=== PATIENT | male | born 1935 | race Caucasian/White ===

== ENCOUNTER 2023-02-20 19:45 | Emergency (ER) | payer OTHER ==
--- NOTE | 2023-02-20 21:20 | RAD REPORT ---
EXAM DESCRIPTION: CT - CTHCSPWOC - 02/20/2023 9:09 pm CLINICAL HISTORY: Trauma, head and neck injury. trauma COMPARISON: No comparisons TECHNIQUE: Axial 5 mm thick images of the head were obtained. Axial 2 mm thick images of the cervical spine were obtained with sagittal and coronal reconstruction images generated and reviewed. All CT scans are performed using dose optimization technique as appropriate and may include automated exposure control or mA/KV adjustment according to patient size. FINDINGS: CT HEAD WITHOUT CONTRAST: Extra-axial hemorrhage along the right frontal lobe measuring 7 mm in maximal thickness. This could b e either subdural or epidural hematoma. Part of the hemorrhage has a convex appearance. No areas of b rain edema or midline shift. Large bifrontal scalp hematomas. Cerebral atrophy. Proximal changes. The paranasal sinuses and mastoids are clear.The calvarium is intact. CT CERVICAL SPINE WITHOUT CONTRAST: No fracture or subluxation.No prevertebral soft tissues swelling is identified. Multilevel cervical s pondylosis with varying degrees of neural foraminal narrowing. Right IJ approach dialysis catheter. IMPRESSION: 1. Extra-axial hemorrhage along the right frontal lobe is probably acute subdural hemato ma but there is some convexity of the hemorrhage making an epidural hematoma difficult to entirely ex clude. No midline shift. No skull fracture. Discussed with Dr. Barrientos via phone at [id number] on 02/20/23 . 2. No fracture or traumatic malalignment of the cervical spine.
[2023-02-20] MEDS ORDERED: HYDROCODONE/APAP 5/325 MG TAB ONE (21:40)
[2023-02-20] MEDS ORDERED: ONDANSETRON 4 MG (ODT) TAB ONE (21:40)
[2023-02-20 21:56] LABS: Protime INR 1.17
[2023-02-20 21:58] LABS: Absolute Lymphocytes (CBC) 0.8 K/uL (0.7-4.9); Hematocrit 25.9 % (39.6-49.0); Lymphocytes % 9.2 % (15.3-44.8); MCV 92.6 fL (80-100); MPV 10.6 fL (7.6-11.3)
[2023-02-20 22:12] LABS: Potassium 2.6 mEq/L (3.5-5.1)
[2023-02-20 22:28] LABS: Albumin 3.4 g/dL (3.4-5.0); Bilirubin Direct 0.1 mg/dL (0-0.2); Bilirubin Indirect, Calculated 0.2 mg/dL (0.2-0.8); Bilirubin Total 0.3 mg/dL (0.2-1.0); Protein, Total 6.2 g/dL (6.4-8.2); Troponin High Sensitivity 52.8 pg/mL (<58.9)
[2023-02-20] MEDS ORDERED: NA CHLORIDE 0.9% 250 ML ONE (22:48)
[2023-02-20] MEDS ORDERED: KCL 20 MEQ/100 mL IVPB 100 ML IV ONE (22:48)
--- NOTE | 2023-02-21 00:02 | ER ---
Nurse's Notes [facility] Name: Joe Lopez Age: 87 yrs Sex: Male : 1935 Arrival Date: 02/20/2023 Time: 19:45 Bed 7 Private MD: Diagnosis: Acute subdural hematoma, traumatic brain injury, scalp hematoma, skin tear to the scalp, acute head injury, end-stage renal disease on hemodialysis, hypokalemia Presentation: 02/20 19:52 Chief complaint: EMS states: Toned out for a syncopal episode at dialysis, EMS states ph pt had 2.5 L taken off at dialysis today, reports low BP upon arrival, pt has abrasion and swelling to right temporal area, right eyebrow, abrasions to left cheek and right hand, bruising noted to right pectoral area, pt c/o pain to head 10/10. Coronavirus screen: Vaccine status: Patient reports receiving the 2nd dose of the covid vaccine. At this time, the client does not indicate any symptoms associated with coronavirus-19. Ebola Screen: No symptoms or risks identified at this time. Initial Sepsis Screen: Does the patient meet any 2 criteria? No. Patient's initial sepsis screen is negative. Does the patient have a suspected source of infection? No. Patient's initial sepsis screen is negative. Risk Assessment: Do you want to hurt yourself or someone else? Patient reports no desire to harm self or others. Onset of symptoms was February 20, 2023. Care prior to arrival: Medication(s) given: Normal saline infusion, 300 IV initiated. 18 GA, in the right antecubital area, Glucose check: 226. 19:52 Method Of Arrival: EMS: [facility] ph 19:52 Acuity: DEONDRE 3 ph Triage Assessment: 19:59 General: Appears uncomfortable, Behavior is calm, cooperative. Pain: Complains of pain ph in face Pain does not radiate. Pain currently is 10 out of 10 on a pain scale. Is continuous. Neuro: Reports a syncopal episode States had dialysis today where they took 2.5 L off, states stood up to use the bathroom and passed out. Cardiovascular: Patient's skin is warm and dry. Respiratory: Respiratory effort is even, unlabored, Respiratory pattern is regular, symmetrical. Derm: Wound noted Other: Abrasion to L cheek, right temporal area, R hand Bruising that is dark purple, on anterior aspect of right upper chest. Musculoskeletal: Circulation, motion, and sensation intact. Historical: - Allergies: 19:59 No Known Allergies; ph - Home Meds: 19:59 glipizide 2.5 mg Oral Tablet, Extended Release 24 hr daily [Active]; Lasix 40 mg Oral ph tablet daily [Active]; levothyroxine 25 mcg capsule daily [Active]; sevelamer HCl oral 1600 3 times per day [Active]; - PMHx: 19:59 ESRD; Diabetes mellitus; ph - Immunization history:: Client reports receiving the 2nd dose of the Covid vaccine. - Social history:: Smoking status: Patient denies any tobacco usage or history of. - Family history:: not pertinent. Screenin:13 [facility] ED Fall Risk Assessment (Adult) History of falling in the last 3 months, ph including since admission Yes- single mechanical fall (1 pt) Confusion or Disorientation No (0 pts) Intoxicated or Sedated No (0 pts) Impaired Gait No (0 pts) Mobility Assist Device Used No (0 pt) Altered Elimination No (0 pt) Score/Fall Risk Level 0 - 2 = Low Risk Oriented to surroundings, Maintained a safe environment, Educated pt \T\ family on fall prevention, incl call for assistance when getting out of bed. Abuse screen: Denies threats or abuse. Denies injuries from another. Nutritional screening: No deficits noted. Tuberculosis screening: No symptoms or risk factors identified. Assessment: 19:59 General: See triage assessment. ph 22:14 Cardiovascular: Rhythm is sinus bradycardia. ph Vital Signs: 19:52 BP 154 / 67; Pulse 85; Resp 17; Temp 97.5(O); Pulse Ox 100% on R/A; Weight 59.87 kg ph (R); Height 5 ft. 8 in. (R); Pain 10/10; 20:45 BP 152 / 76; Pulse 50; Resp 15; Pulse Ox 100% on R/A; ph 22:00 BP 175 / 60; Pulse 53; Resp 16; Pulse Ox 100% on R/A; ph 23:15 BP 146 / 62; Pulse 56; Resp 17; Pulse Ox 98% on R/A; ll3 05/30 00:15 BP 161 / 64; Pulse 55; Resp 16; Pulse Ox 99% on R/A; ll3 01:30 BP 151 / 65; Pulse 51; Resp 16; Pulse Ox 96% on R/A; ll3 02/20 19:52 Body Mass Index 20.07 (59.87 kg, 172.72 cm) ph 02/20 19:52 Pain Scale: Adult ph ED Course: 02/20 19:45 Patient arrived in ED. rv1 19:59 Triage completed. ph 19:59 Arm band placed on Patient placed in an exam room, on a stretcher, on registered nurse cardiac, ph on pulse oximetry. EKG completed in triage. Results shown to MD. 20:02 Guido Davis MD is Attending Physician. bs3 20:39 Attending Physician role handed off by Guido Davis MD sp4 20:39 Erik Barrientos MD is Attending Physician. sp4 21:10 Head C Spine Mpr Wo Con In Process Unspecified. EDMS 22:14 Patient has correct armband on for positive identification. Placed in gown. Bed in low ph position. Call light in reach. Side rails up X 1. Adult w/ patient. 22:14 No provider procedures requiring assistance completed. ph 22:58 XRAY Chest (1 view) In Process Unspecified. EDMS 23:10 Initiated transfer with Lizeth Gagnon at [facility]. rv1 02/21 00:09 Pt accepted to [facility] by Dr. May to Rm [id number]. rv1 01:58 Patient transferred, IV remains in place. ll3 Administered Medications: 02/20 21:43 Drug: HYDROcodone-acetaminophen PO 5 mg-325 mg 2 tabs Route: PO; ph 02/21 00:15 Follow up: Response: No adverse reaction; Marked relief of symptoms; Pain is decreased ll3 02/20 21:43 Drug: Ondansetron PO 4 mg Route: PO; ph 02/21 00:15 Follow up: Response: No adverse reaction ll3 02/20 23:01 Drug: Potassium Chloride IV 20 mEq Route: IV; Rate: calculated rate; Site: right ph antecubital; Medication: 02/21 01:58 VIS not applicable for this client. ll3 Outcome: 00:01 ER care complete, transfer ordered by . sp4 01:58 Transferred by ground EMS Transfer form completed. X-rays sent w/ patient. Note: [facility] ll3 [place] 01:58 Condition: stable 01:58 Instructed on the need for transfer, Demonstrated understanding of instructions. 01:58 Patient left the ED. ll3 Signatures: Dispatcher [employer] Yu Orourke RN RN Miki Cortes RN RN ll3 Guido Davis MD MD bs3 Nancy Levin rv1 Erik Barrientos MD MD sp4 Corrections: (The following items were deleted from the chart) 02/20 20:08 20:07 General: See triage assessment. [facility]
--- NOTE | 2023-02-21 00:03 | EDPHYS ---
Physician Documentation [facility] Name: Joe Lopez Age: 87 yrs Sex: Male : 1935 Arrival Date: 02/20/2023 Time: 19:45 Bed 7 Private MD: ED Physician Erik Barrientos HPI: 02/20 21:42 This 87 yrs old Male presents to ER via EMS with complaints of Syncope. sp4 21:42 87-year-old male with past medical history of end-stage renal disease. Patient is on sp4 hemodialysis every Monday, Monday, Monday. Patient presents with acute fall at the dialysis center and he struck his head on the commode. Patient presents with moderate hematoma right forehead and another moderate hematoma to the left forehead. Denied loss of consciousness, denied vomiting, reported mild headache. . Historical: - Allergies: 19:59 No Known Allergies; ph - Home Meds: 19:59 glipizide 2.5 mg Oral Tablet, Extended Release 24 hr daily [Active]; Lasix 40 mg Oral ph tablet daily [Active]; levothyroxine 25 mcg capsule daily [Active]; sevelamer HCl oral 1600 3 times per day [Active]; - PMHx: 19:59 ESRD; Diabetes mellitus; ph - Immunization history:: Client reports receiving the 2nd dose of the Covid vaccine. - Social history:: Smoking status: Patient denies any tobacco usage or history of. - Family history:: not pertinent. ROS: 21:42 Constitutional: Negative for fever, chills, and weight loss, positive for head injury, sp4 positive for scalp hematomas Eyes: Negative for injury, pain, redness, and discharge, ENT: Negative for injury, pain, and discharge, Neck: Negative for injury, pain, and swelling, Cardiovascular: Negative for chest pain, palpitations, and edema, Respiratory: Negative for shortness of breath, cough, wheezing, and pleuritic chest pain, Abdomen/GI: Negative for abdominal pain, nausea, vomiting, diarrhea, and constipation, Back: Negative for injury and pain, : Negative for injury, bleeding, discharge, and swelling, MS/Extremity: Negative for injury and deformity, Skin: Negative for injury, rash, and discoloration, Neuro: Negative for headache, weakness, numbness, tingling, and seizure, Psych: Negative for depression, anxiety, Allergy/Immunology: Negative for hives, rash, and allergies Endocrine: Negative for neck swelling, polydipsia, polyuria, polyphagia, and weight changes Hematologic/Lymphatic: Negative for swollen nodes, abnormal bleeding, and unusual bruising Exam: 21:42 Constitutional: This is a well developed, well nourished patient who is awake, alert, sp4 and in no acute distress. Frail elderly male, no acute distress, moderate bilateral scalp hematomas, multiple areas of subcutaneous skin hemorrhage bilateral upper extremity. Head/Face: Normocephalic, there scalp hematomas, moderate left forehead scalp hematoma, and moderate right forehead and scalp hematoma with skin abrasions and some areas of denuded skin to the scalp.. No lacerations. Eyes: Pupils equal round and reactive to light, extra-ocular motions intact. Lids and lashes normal. Conjunctiva and sclera are not injected. Cornea within normal limits. Periorbital areas with no swelling, redness, or edema. ENT: Nares patent. No nasal discharge, no septal abnormalities noted. Tympanic membranes are normal and external auditory canals are clear. Oropharynx with no redness, swelling, or masses, exudates, or evidence of obstruction, uvula midline. Mucous membranes moist. Neck: Trachea midline, no thyromegaly or masses palpated, and no cervical lymphadenopathy. Supple, full range of motion without nuchal rigidity, or vertebral point tenderness. No Meningismus. Chest/axilla: Normal chest wall appearance and motion. Nontender with no deformity. No lesions are appreciated. Right chest wall tunneled hemodialysis port Cardiovascular: Regular rate and rhythm with a normal S1 and S2. No gallops, murmurs, or rubs. Normal PMI, no JVD. No pulse deficits. Respiratory: Lungs have equal breath sounds bilaterally, clear to auscultation and percussion. No rales, rhonchi or wheezes noted. No increased work of breathing, no retractions or nasal flaring. Abdomen/GI: Soft, non-tender, with normal bowel sounds. No distension or tympany. No guarding or rebound. No evidence of tenderness throughout. Back: No spinal tenderness. No costovertebral tenderness. Male : Normal genitalia with no discharge or lesions. Skin: Warm, dry with normal turgor. Normal color with no rashes, no lesions, and no evidence of cellulitis. Multiple areas of subcutaneous hemorrhage to upper extremities. MS/ Extremity: Pulses equal, no cyanosis. Neurovascular intact. Full, normal range of motion. Neuro: Awake and alert, GCS 15, oriented to person, place, time, and situation. Cranial nerves II-XII grossly intact. Motor strength 5/5 in all extremities. Sensory grossly intact. Psych: Awake, alert, with orientation to person, place and time. Behavior, mood, and affect are within normal limits Vital Signs: 19:52 BP 154 / 67; Pulse 85; Resp 17; Temp 97.5(O); Pulse Ox 100% on R/A; Weight 59.87 kg ph (R); Height 5 ft. 8 in. (R); Pain 10/10; 20:45 BP 152 / 76; Pulse 50; Resp 15; Pulse Ox 100% on R/A; ph 22:00 BP 175 / 60; Pulse 53; Resp 16; Pulse Ox 100% on R/A; ph 23:15 BP 146 / 62; Pulse 56; Resp 17; Pulse Ox 98% on R/A; ll3 05 00:15 BP 161 / 64; Pulse 55; Resp 16; Pulse Ox 99% on R/A; ll3 01:30 BP 151 / 65; Pulse 51; Resp 16; Pulse Ox 96% on R/A; ll3 02/20 19:52 Body Mass Index 20.07 (59.87 kg, 172.72 cm) ph 02/20 19:52 Pain Scale: Adult ph MDM: 02/20 20:02 Patient medically screened. bs3 23:44 Differential Diagnosis: cerebrovascular accident, drug effect, transient ischemic sp4 attack, vasovagal episode, Closed head injury, intracranial hemorrhage. Data reviewed: vital signs, nurses notes, old medical records, lab test result(s), radiologic studies, CT scan, plain films. ED course: Patient has small epidural hematoma secondary to traumatic head injury right frontal lobe. Patient was discussed with Dr. Domingo. With [facility] neurosurgery and accepted for transfer. Currently awaiting for transfer. 02/20 21:25 Order name: Basic Metabolic Panel; Complete Time: 22:33 sp4 02/20 21:25 Order name: CBC with Diff; Complete Time: 22:33 sp4 02/20 21:25 Order name: Type And Screen; Complete Time: 23:43 [facility] 02/20 21:25 Order name: PT-INR; Complete Time: 22:33 [facility] 02/20 21:50 Order name: LFT's; Complete Time: 22:33 [facility] 02/20 21:50 Order name: Troponin High Sensitivity; Complete Time: 22:33 [facility] 02/20 20:33 Order name: Head C Spine Mpr Wo Con; Complete Time: 21:24 [facility] 02/20 21:25 Order name: XRAY Chest (1 view) [facility] 02/20 21:50 Order name: EKG; Complete Time: 21:50 [facility] 02/20 21:25 Order name: Labs collected and sent; Complete Time: 21:44 [facility] 02/20 21:26 Order name: Wound Care; Complete Time: 22:01 [facility] Administered Medications: 21:43 Drug: HYDROcodone-acetaminophen PO 5 mg-325 mg 2 tabs Route: PO; ph 02/21 00:15 Follow up: Response: No adverse reaction; Marked relief of symptoms; Pain is decreased [facility] 02/20 21:43 Drug: Ondansetron PO 4 mg Route: PO; ph 02/21 00:15 Follow up: Response: No adverse reaction [facility] 02/20 23:01 Drug: Potassium Chloride IV 20 mEq Route: IV; Rate: calculated rate; Site: right ph antecubital; Disposition Summary: 02/21/23 00:01 Transfer Ordered Transfer Location: [facility] sp4 Reason: Higher level of care sp4 Condition: Stable sp4 Problem: new sp4 Symptoms: have improved sp4 Accepting Physician: Chayo Kraus MD, Neurosurgery(02/21/23 01:58) ll3 Diagnosis - Acute subdural hematoma, traumatic brain injury, scalp hematoma, skin tear to the sp4 scalp, acute head injury, end-stage renal disease on hemodialysis, hypokalemia Discharge Instructions: - Discharge Summary Sheet rv1 Forms: - SBAR form rv1 - Medication Reconciliation Form sp4 Signatures: Dispatcher [employer] Yu Orourke RN RN Miki Bucio RN RN ll3 Guido Davis MD MD bs3 Erik Barrientos MD MD sp4 Corrections: (The following items were deleted from the chart) 20:33 20:03 Head Brain Wo Cont+CT.RAD.BRZ ordered. EDMS EDMS 20:33 20:03 C Spine Wo Con+CT.RAD.BRZ ordered. EDMS EDMS 02/21 01:58 00:01 Chayo Kraus MD, Neurosurgery sp4 ll3
[2023-02-21 02:13] VITALS: TEMP 97.5
[2023-02-21 02:18] VITALS: BP 151/65; O2SAT 96
--- NOTE | 2023-02-21 15:17 | RAD REPORT ---
EXAM DESCRIPTION: RAD - Chest Single View - 02/20/2023 10:56 pm CLINICAL HISTORY: Fall COMPARISON: None. FINDINGS: Single frontal radiograph view of the chest. Cardiomediastinal silhouette: Right IJ dual-lumen central venous catheter tip in the SVC. Leads overl ie the chest. Atherosclerotic calcification of thoracic aorta. Heart is not enlarged. Lungs: Hyperexpansion. No focal consolidation. No pneumothorax. Bones: Endplate spondylosis. Osteoarthritic change of the shoulders. Upper abdomen: No abnormality identified. IMPRESSION: 1. No acute pneumonic process. 2. Obstructive lung disease. Electronically signed by: Danish Alvares 02/21/2023 12:42 AM CDT Due to temporary technical issues with the PACS/Fluency reporting system, reports are being signed by the in house radiologists without review as a courtesy to insure prompt reporting. The interpreting radiologist is fully responsible for the content of the report.
--- NOTE | 2023-02-22 07:10 | EKG ---
Test Date: 2023-02-20 Test Time: 20:01:01 Psych Arnp: MANNY MEASUREMENT RESULTS: Intervals: Rate: 51 MS: 110 QRSD: 96 QT: 510 QTc: 470 [place]: P: -7 MS: 110 QRS: -47 T: 74 INTERPRETIVE STATEMENTS: Sinus bradycardia with short MS with premature supraventricular complexes Left anterior fascicular block Abnormal ECG No previous ECG available for comparison Electronically Signed On 02-22-23 07:06:58 CDT by Kendall Espinoza
== END 2023-02-21 01:58 | disposition short-term general hospital (02) ==
LOC: ER 19:45
DX: S06.5X0A Traumatic subdural hemorrhage without loss of consciousness, initial encounter (principal); S01.01XA Laceration without foreign body of scalp, initial encounter; E87.6 Hypokalemia; E11.22 Type 2 diabetes mellitus with diabetic chronic kidney disease; N18.6 End stage renal disease; Z99.2 Dependence on renal dialysis
CPT/HCPCS: 93005; 85025; 80048; 36415; 86900; 86850; 85610; 86901; 80076; 84484; 70450; 72125; 71045; 96374; 99285; J3480; Q0162; J7050

== ENCOUNTER 2023-02-28 15:01 | Emergency (ER) | payer OTHER ==
--- NOTE | 2023-02-28 16:07 | RAD REPORT ---
EXAM DESCRIPTION: RAD - Chest Single View - 02/28/2023 4:02 pm CLINICAL HISTORY: syncope Chest pain. COMPARISON: Chest Single View dated 02/20/2023 FINDINGS: Portable technique limits examination quality. The lungs are grossly clear. The heart is normal in size. No displaced fractures.Right-sided venous c atheter its tip in the SVC. IMPRESSION: No acute intrathoracic process suspected.
[2023-02-28 16:11] LABS: Absolute Lymphocytes (CBC) 0.8 K/uL (0.7-4.9); Hematocrit 26.9 % (39.6-49.0); Lymphocytes % 8.1 % (15.3-44.8); MCV 93.2 fL (80-100); Protime INR 1.08; RBC Red Blood Cell Count 2.89 M/uL (4.33-5.43)
[2023-02-28 16:33] LABS: Albumin 3.1 g/dL (3.4-5.0); Bilirubin Direct 0.1 mg/dL (0-0.2); Bilirubin Indirect, Calculated 0.3 mg/dL (0.2-0.8); Bilirubin Total 0.4 mg/dL (0.2-1.0); Protein, Total 6.1 g/dL (6.4-8.2)
[2023-02-28 16:36] LABS: SARS-CoV-2 Antigen Rapid Res Negative (Negative)
[2023-02-28 16:38] LABS: Potassium 2.4 mEq/L (3.5-5.1)
[2023-02-28] MEDS ORDERED: NA CHLORIDE 0.9% 250 ML ONE (17:57)
[2023-02-28] MEDS ORDERED: KCL 20 MEQ/100 mL IVPB 100 ML IV ONE (17:58)
--- NOTE | 2023-02-28 18:23 | RAD REPORT ---
EXAM DESCRIPTION: CT - CTHCSPWOC - 02/28/2023 6:13 pm CLINICAL HISTORY: Trauma, head and neck injury. SYNCOPE COMPARISON: Head C Spine Mpr Wo Con dated 02/20/2023 TECHNIQUE: Axial 5 mm thick images of the head were obtained. Axial 2 mm thick images of the cervical spine were obtained with sagittal and coronal reconstruction images generated and reviewed. All CT scans are performed using dose optimization technique as appropriate and may include automated exposure control or mA/KV adjustment according to patient size. FINDINGS: CT HEAD WITHOUT CONTRAST: Bilateral intermediate density extra-axial fluid collections are present, noted to be new since 02/20 CT head. On the right, maximum thickness measures 10 mm, and on the left measures 9 mm. In cary tion there is mild acute subdural blood suspected along the right temporal convexity measuring 5 mm i n maximum thickness.No significant midline shift evident. The paranasal sinuses and mastoids are clear.The calvarium is intact. CT CERVICAL SPINE WITHOUT CONTRAST: No fracture or subluxation.Mild diffuse cervical degenerative changes are present.No prevertebral sof t tissues swelling is identified. IMPRESSION: Bilateral extra-axial intermediate density fluid collections have developed since 2022, measuring bilaterally between 8 mm 10 mm in thickness. These may represent subdural hygromas.In addition, there is a small amount acute subdural blood seen along the right temporal fossa maximally measuring 5 mm in thickness. This is a similar finding to the comparative study. No midline shift is evident. No acute cervical spine abnormality.
--- NOTE | 2023-02-28 19:00 | ER ---
Nurse's Notes [facility] Name: Joe Lopez Age: 87 yrs Sex: Male : 1935 Arrival Date: 02/28/2023 Time: 15:01 Bed 16 Private MD: Diagnosis: Hypokalemia;Traumatic subdural hemorrhage with loss of consciousness of unspecified duration;Unspecified atrial fibrillation Presentation: 02/28 15:22 Chief complaint: Patient states: Pt reports he was waiting for his ride after dialysis kb3 and as he stood up, her fell forward. Denies injury, CP, SOB. EMS reports hypotension on scene. SBP 120's upon arrival to ER. Coronavirus screen: Vaccine status: Patient reports receiving the 2nd dose of the covid vaccine. Ebola Screen: Patient negative for fever greater than or equal to 101.5 degrees Fahrenheit, and additional compatible Ebola Virus Disease symptoms Patient denies exposure to infectious person. Patient denies travel to an Ebola-affected area in the 21 days before illness onset. Initial Sepsis Screen: Does the patient meet any 2 criteria? No. Patient's initial sepsis screen is negative. Does the patient have a suspected source of infection? No. Patient's initial sepsis screen is negative. Risk Assessment: Do you want to hurt yourself or someone else? Patient reports no desire to harm self or others. Onset of symptoms was February 28, 2023 at 14:30. 15:22 Method Of Arrival: EMS: [facility] kb3 15:22 Acuity: DEONDRE 3 kb3 Triage Assessment: 15:28 General: Appears in no apparent distress. comfortable, Behavior is calm, cooperative. kb3 Pain: Denies pain. Historical: - Allergies: 15:28 No Known Allergies; kb3 - Home Meds: 15:28 glipizide 2.5 mg Oral Tablet, Extended Release 24 hr daily [Active]; Lasix 40 mg Oral kb3 solution daily [Active]; levothyroxine 25 mcg capsule daily [Active]; sevelamer HCl oral 1600 3 times per day [Active]; - PMHx: 15:28 diabetes mellitus; ESRD; kb3 - PSHx: 15:28 Abdominal sx; kb3 - Immunization history:: Adult Immunizations up to date, Client reports receiving the 2nd dose of the Covid vaccine, Last tetanus immunization: up to date. - Social history:: Smoking status: Patient denies any tobacco usage or history of. Screenin:50 [facility] ED Fall Risk Assessment (Adult) History of falling in the last 3 months, kb3 including since admission Yes- fall prone (multiple falls) (3 pts) Confusion or Disorientation No (0 pts) Intoxicated or Sedated No (0 pts) Impaired Gait Yes (1 pt) Mobility Assist Device Used Yes (1 pt) Altered Elimination No (0 pt) Score/Fall Risk Level 3 or more points = High Risk Oriented to surroundings, Maintained a safe environment, Educated pt \T\ family on fall prevention, incl call for assistance when getting out of bed, Assessed \T\ reinforced patient's understanding of fall precautions, Provided non-skid footwear, Hourly rounding (assess needs \T\ fall precautionary measures) done, Used ambulatory aids as needed (educated on \T\ assisted with), Used gait belt as appropriate Implemented a Fall Risk Plan of Care, Apply high fall risk patient identification: yellow non skid footwear/ fall signage, Placed fall mat w/ non beveled edge next to bed, Activated bed/chair alarm, Remained w/in arm's length of patient and in sight while toileting, Offered frequent toileting (1:1 observation), Remained with patient while ambulating, Utilized family, sitter, or virtual tool storage attendant as indicated. 21:49 Abuse screen: Denies threats or abuse. Denies injuries from another. Nutritional aa9 screening: No deficits noted. Tuberculosis screening: No symptoms or risk factors identified. Assessment: 15:50 General: Appears in no apparent distress. comfortable, Behavior is calm, cooperative, kb3 Multiple yellow/brown/purple bruises across face and chest from a fall last week Pt reports fall from standing after completing dialysis. Pt denies pain, reports no complaints at this time. 15:50 Pain: Denies pain. Cardiovascular: Denies chest pain, lightheadedness, nausea, kb3 palpitations, shortness of breath, Rhythm is w/SVR. 16:18 Reassessment: No changes from previously documented assessment. Patient is alert, bp oriented x 3, equal unlabored respirations, skin warm/dry/pink. 18:38 Reassessment: PT RETURNED FROM CT. bp 21:03 Reassessment: Patient appears in no apparent distress at this time. REPORT PROVIDED TO winnie sánchez rn. 21:46 Reassessment: Patient appears in no apparent distress at this time. Patient is alert, aa9 oriented x 3, equal unlabored respirations, skin warm/dry/pink. EMS at bedside Patient denies pain at this time. Vital Signs: 15:22 BP 120 / 64; Pulse 50; Resp 17; Temp 97.6; Pulse Ox 95% ; Weight 57.61 kg; Height 5 ft. kb3 8 in. ; Pain 0/10; 16:17 BP 120 / 55; Pulse 70; Resp 22; Pulse Ox 99% ; bp 17:20 BP 123 / 56; Pulse 53; Resp 12; Pulse Ox 100% ; bp 18:37 BP 127 / 63; Pulse 56; Resp 16; Pulse Ox 99% ; bp 19:00 BP 126 / 56; Pulse 59; Resp 19; Pulse Ox 100% on R/A; aa9 20:00 BP 111 / 54; Pulse 56; Resp 17 S; Pulse Ox 100% ; aa9 21:00 BP 108 / 53; Pulse 55; Resp 18; Pulse Ox 99% on R/A; aa9 21:48 BP 107 / 52; Pulse 54; Resp 17 S; Temp 98.2; Pulse Ox 99% on R/A; aa9 15:22 Body Mass Index 19.31 (57.61 kg, 172.72 cm) kb3 15:22 Pain Scale: Adult kb3 ED Course: 15:02 Patient arrived in ED. jl7 15:04 Angel Sanchez MD is Attending Physician. chris 15:09 [facility] Pickett PA is [facility]. cp 15:28 Triage completed. kb3 15:28 Arm band placed on right wrist. kb3 15:45 No provider procedures requiring assistance completed. Inserted saline lock: 20 gauge kb3 in left forearm, using aseptic technique. 15:50 Patient has correct armband on for positive identification. Placed in gown. Bed in low kb3 position. Call light in reach. Side rails up X2. Warm blanket given. PO fluids given. snacks provided. 16:04 XRAY Chest (1 view) In Process Unspecified. EDMS 16:08 Blood Culture Adult (2) Sent. kb3 16:08 Lactate w/ 2H reflex if indic. Sent. kb3 16:08 Basic Metabolic Panel Sent. kb3 16:08 CBC with Diff Sent. kb3 16:08 LFT's Sent. kb3 16:08 Magnesium Sent. kb3 16:08 PT-INR Sent. kb3 16:08 Troponin HS Sent. kb3 16:17 Alonso Alexander, RN is Primary Nurse. bp 18:15 CT Head C Spine In Process Unspecified. EDMS 19:32 Initial transfer to [facility] transfer center spoke with CITLALI Lee. ah1 19:41 Assisted to bedside commode. aa9 19:41 Linen changed. aa9 19:47 CITLALI Lee called back to speak with Angel for report. ah1 19:53 Inserted saline lock: 22 gauge in left forearm, using aseptic technique. aa9 19:[address] Shagufta Pickens. ah1 20:12 Hospital bed approval by CITLALI Lee. ah1 20:30 Contacted [facility]. ah1 21:17 Diet: Patient given snack. Tolerated well. aa9 21:49 Patient transferred, IV remains in place. aa9 Administered Medications: 18:37 Drug: Potassium Chloride IV 20 mEq Route: IV; Rate: calculated rate; Site: left bp antecubital; 20:54 Follow up: Response: No adverse reaction; IV Status: Completed infusion aa9 19:53 Drug: Keppra IV 1000 mg Route: IV; Rate: calculated rate; Site: left forearm; aa9 20:54 Follow up: Response: No adverse reaction; IV Status: Completed infusion; IV Intake: aa9 100ml Medication: 15:50 VIS not applicable for this client. kb3 Intake: 20:54 IV: 100ml; Total: 100ml. aa9 Outcome: 18:59 ER care complete, transfer ordered by . cp 21:49 Transferred by ground EMS to [facility], Transfer form aa9 completed. 21:49 Condition: stable 21:49 Instructed on the need for transfer. 21:52 Patient left the ED. aa9 Signatures: Dispatcher [employer] EDAngel Yoon MD MD cha Page, Corey, Arnoldo Pulido cp, RN RN jl7 Alonso Alexander, RN RN Alexandra Arroyo RN RN aa9 Yudith Crandall RN RN 3 Neil Holden [facility]
--- NOTE | 2023-02-28 19:00 | EDPHYS ---
Physician Documentation [facility] Name: Joe Lopez Age: 87 yrs Sex: Male : 1935 Arrival Date: 02/28/2023 Time: 15:01 Bed 16 Private MD: ED Physician Angel Sanchez HPI: 02/28 15:20 This 87 yrs old Male presents to ER via EMS with complaints of Fall Injury. cp 15:20 Details of fall: The patient fell from an upright position, while standing. cp 15:20 Onset: The symptoms/episode began/occurred just prior to arrival. cp 15:20 Associated injuries: The patient sustained injury to the head, contusion. cp 15:20 Patient reports he had just finished dialysis when he stood up to go outside to wait cp for ride and next thing he remembers is waking up on ground. Patient seen recently in this ED on 02-21-2023 after sustaining subdural bleed from fall from standing. Patient was transferred to [facility] for neurosurgery evaluation. Historical: - Allergies: 15:28 No Known Allergies; kb3 - Home Meds: 15:28 glipizide 2.5 mg Oral Tablet, Extended Release 24 hr daily [Active]; Lasix 40 mg Oral kb3 solution daily [Active]; levothyroxine 25 mcg capsule daily [Active]; sevelamer HCl oral 1600 3 times per day [Active]; - PMHx: 15:28 diabetes mellitus; ESRD; kb3 - PSHx: 15:28 Abdominal sx; kb3 - Immunization history:: Adult Immunizations up to date, Client reports receiving the 2nd dose of the Covid vaccine, Last tetanus immunization: up to date. - Social history:: Smoking status: Patient denies any tobacco usage or history of. ROS: 15:25 Constitutional: Negative for body aches, chills, fever, poor PO intake. cp 15:25 Eyes: Negative for injury, pain, redness, and discharge. cp 15:25 Neck: Negative for stiffness. 15:25 Cardiovascular: Negative for chest pain, palpitations. 15:25 Respiratory: Negative for cough, shortness of breath, wheezing. 15:25 Abdomen/GI: Negative for abdominal pain, vomiting, diarrhea, constipation. 15:25 Neuro: Positive for syncope, Negative for altered mental status, seizure activity, weakness. 15:25 All other systems are negative. Exam: 15:30 Constitutional: The patient appears in no acute distress, alert, awake, cp non-diaphoretic, non-toxic, well developed, well nourished, frail. 15:30 Head/face: Noted is hematoma, that is moderate, of the right side forhead, noted old cp appearing ecchymosis. 15:30 Eyes: Periorbital structures: appear normal, Pupils: equal, round, and reactive to light and accomodation, Extraocular movements: intact throughout, Conjunctiva: normal, no exudate, no injection, Sclera: no appreciated abnormality, Lids and lashes: appear normal, bilaterally. 15:30 ENT: External ear(s): are unremarkable, Ear canal(s): are normal, clear, TM's: dullness, bilaterally, Nose: is normal, Mouth: Lips: moist, Oral mucosa: pink and intact, moist, Posterior pharynx: is normal, airway is patent, no erythema, no exudate. 15:30 Neck: C-spine: vertebral tenderness, is not appreciated, crepitus, is not appreciated. 15:30 Chest/axilla: Inspection: normal, Palpation: is normal, no crepitus, no tenderness. 15:30 Cardiovascular: Rate: bradycardic, Rhythm: irregular, Edema: is not appreciated, JVD: is not appreciated. 15:30 Respiratory: the patient does not display signs of respiratory distress, Respirations: normal, no use of accessory muscles, no retractions, labored breathing, is not present, Breath sounds: are clear throughout, no decreased breath sounds, no stridor, no wheezing. 15:30 Abdomen/GI: Inspection: abdomen appears normal, Palpation: abdomen is soft and non-tender, in all quadrants. 15:30 Back: vertebral tenderness, is not appreciated. 15:30 Musculoskeletal/extremity: Exam is negative for bony tenderness, decreased range of motion, injury, Extremities: all appear grossly normal, with no appreciated pain with palpation. 15:30 Neuro: Orientation: to person, place \T\ time. Mentation: is normal, Motor: moves all fours, general weakness with no focal deficits, Sensation: is normal. 16:00 ECG was reviewed by the Attending Physician. cp Vital Signs: 15:22 BP 120 / 64; Pulse 50; Resp 17; Temp 97.6; Pulse Ox 95% ; Weight 57.61 kg; Height 5 ft. kb3 8 in. ; Pain 0/10; 16:17 BP 120 / 55; Pulse 70; Resp 22; Pulse Ox 99% ; bp 17:20 BP 123 / 56; Pulse 53; Resp 12; Pulse Ox 100% ; bp 18:37 BP 127 / 63; Pulse 56; Resp 16; Pulse Ox 99% ; bp 19:00 BP 126 / 56; Pulse 59; Resp 19; Pulse Ox 100% on R/A; aa9 20:00 BP 111 / 54; Pulse 56; Resp 17 S; Pulse Ox 100% ; aa9 21:00 BP 108 / 53; Pulse 55; Resp 18; Pulse Ox 99% on R/A; aa9 21:48 BP 107 / 52; Pulse 54; Resp 17 S; Temp 98.2; Pulse Ox 99% on R/A; aa9 15:22 Body Mass Index 19.31 (57.61 kg, 172.72 cm) kb3 15:22 Pain Scale: Adult kb3 MDM: 15:04 Patient medically screened. chris 16:00 Differential diagnosis: closed head injury, contusion, fracture, laceration, multiple cp trauma. 18:56 ED course: Daughter requests attempt to be made to transfer to [facility] for continued care as patient was transferred to there for traumatic head injury from previous fall on 02-21-2023. 20:07 Data reviewed: vital signs, nurses notes, lab test result(s), EKG, radiologic studies. Management of patient was discussed with the following: DR Pickens, hospitalist at [facility] will be accepting physician. 02/28 15:13 Order name: Basic Metabolic Panel; Complete Time: 16:39 cp 02/28 17:09 Interpretation: Abnormal: K 2.4; GLUC 187; BUN 23; CRE 3.14; GFR 18; CA 8.4. 02/28 15:13 Order name: CBC with Diff; Complete Time: 16:38 cp 02/28 16:38 Interpretation: Normal except: RBC 2.89; HGB 8.9; HCT 26.9; RDW 15.3; PIPPA% 83.4; LYM% cp 8.1; NEUT A 8.5. 02/28 15:13 Order name: LFT's; Complete Time: 16:39 cp 06/ 19:15 Interpretation: Normal except: AST 10; TP 6.1; ALB 3.1; A/G 1.0. cp 06/ 15:13 Order name: Magnesium; Complete Time: 16:39 cp 06/ 15:13 Order name: PT-INR; Complete Time: 16:38 cp 06/ 15:13 Order name: Troponin HS; Complete Time: 16:39 cp 06/ 19:15 Interpretation: Reviewed. 02/28 15:13 Order name: Lactate w/ 2H reflex if indic.; Complete Time: 16:38 cp 06/ 16:38 Interpretation: Reviewed. cp 02/28 15:13 Order name: Blood Culture Adult (2) cp / 15:22 Order name: SARS RAPID; Complete Time: 16:38 cp 06/ 19:16 Interpretation: Reviewed. / 15:13 Order name: XRAY Chest (1 view); Complete Time: 16:38 02/28 16:39 Order name: CT Head C Spine; Complete Time: 18:33 cp 06/ 15:13 Order name: EKG; Complete Time: 15:14 cp 06/ 15:13 Order name: Cardiac monitoring; Complete Time: 15:30 cp / 15:13 Order name: EKG - Nurse/Tech; Complete Time: 16:08 cp 06/ 15:13 Order name: IV Saline Lock; Complete Time: 16:08 cp / 15:13 Order name: Labs collected and sent; Complete Time: 16:08 / 15:13 Order name: O2 Per Protocol; Complete Time: 15:30 cp / 15:13 Order name: O2 Sat Monitoring; Complete Time: 15:30 cp EC:00 Rate is 57 beats/min. Rhythm is irregularly irregular. QRS interval is normal. QT cp interval is normal. T waves are Inverted in leads aVR, V2, V3. Interpreted by me. Reviewed by me. Administered Medications: 18:37 Drug: Potassium Chloride IV 20 mEq Route: IV; Rate: calculated rate; Site: left bp antecubital; 20:54 Follow up: Response: No adverse reaction; IV Status: Completed infusion aa9 19:53 Drug: Keppra IV 1000 mg Route: IV; Rate: calculated rate; Site: left forearm; aa9 20:54 Follow up: Response: No adverse reaction; IV Status: Completed infusion; IV Intake: aa9 100ml Disposition Summary: 02/28/23 18:59 Transfer Ordered Transfer Location: [facility] cp Reason: Higher level of care cp Condition: Stable cp Problem: new cp Symptoms: have improved cp Accepting Physician: Doctor(02/28/23 21:52) aa9 Diagnosis - Hypokalemia cp - Traumatic subdural hemorrhage with loss of consciousness of unspecified duration cp - Unspecified atrial fibrillation cp Forms: - Medication Reconciliation Form cp - SBAR form cp Signatures: Dispatcher [employer] EDAngel Yoon MD MD cha Page, Corey, PA PA cp Alonso Alexander, RN RN bp Alexandra Kearney RN RN aa9 Yudith Crandall RN RN kb3 Corrections: (The following items were deleted from the chart) 21:52 18:59 Doctor cp aa9
[2023-02-28] MEDS ORDERED: NA CHLORIDE 0.9% 100 ML ONE (19:23)
[2023-02-28] MEDS ORDERED: LEVETIRACETAM 500 MG/5 ML VIAL IV ONE (19:23)
[2023-02-28 23:12] VITALS: O2SAT 99
[2023-02-28 23:14] VITALS: BP 107/52; TEMP 98.2
--- NOTE | 2023-03-01 07:15 | EKG ---
Test Date: 2023-02-28 Test Time: 15:40:00 [employer] Tapper Helper: BENJAMIN MEASUREMENT RESULTS: Intervals: Rate: 57 OR: QRSD: 94 QT: 484 QTc: 471 [place]: P: OR: QRS: 38 T: 76 INTERPRETIVE STATEMENTS: Atrial fibrillation Abnormal ECG Compared to ECG 02/20/2023 20:01:01 Sinus bradycardia no longer present Atrial premature complex(es) no longer present Short OR interval no longer present Left anterior fascicular block no longer present Electronically Signed On 03-01-23 07:13:59 CDT by Kendall Espinoza
== END 2023-02-28 21:52 | disposition short-term general hospital (02) ==
LOC: ER 15:01
DX: S06.5X9A Traumatic subdural hemorrhage with loss of consciousness of unspecified duration, initial encounter (principal); E87.6 Hypokalemia; I48.91 Unspecified atrial fibrillation; E11.22 Type 2 diabetes mellitus with diabetic chronic kidney disease; N18.6 End stage renal disease; Z99.2 Dependence on renal dialysis; Z20.822 Contact with and (suspected) exposure to COVID-19
CPT/HCPCS: 93005; 87040 ×2; 85025; 80048; 36415; 83735; 85610; 80076; 83605; 84484; 70450; 72125; 71045; 99285; 87811; J3480; J1953; J7050